=== PATIENT | female | born 1995 | race Caucasian/White ===

== ENCOUNTER 2021-10-01 16:06 | Outpatient (CLI) | payer OTHER | END 2021-10-01 18:16 | disposition home or self-care (01) | LOC: GENOP 16:06 | DX: O99.891 Other specified diseases and conditions complicating pregnancy (principal); N89.8 Other specified noninflammatory disorders of vagina; M54.50 Low back pain, unspecified; Z3A.29 29 weeks gestation of pregnancy | CPT/HCPCS: 76815; 83518 ==

== ENCOUNTER 2021-10-12 20:19 | Observation (INO) | payer OTHER ==
[~2021-10-12] VITALS: Ht 160 cm; Wt 79.4 kg
[2021-10-12 23:06] LABS: HEMOGLOBIN 11.1 gm/dl (12.3-15.3); RED BLOOD COUNT 3.46 M/UL (4.00-5.10); WHITE BLOOD COUNT 16.5 K/UL (4.5-11.0)
[2021-10-12 23:27] LABS: BUN/CREATININE RATIO 13 (0-10)
[2021-10-14 06:24] LABS: HEMOGLOBIN 9.7 gm/dl (12.3-15.3); RED BLOOD COUNT 3.02 M/UL (4.00-5.10); WHITE BLOOD COUNT 10.3 K/UL (4.5-11.0)
== END 2021-10-14 12:36 | disposition home or self-care (01) ==
LOC: GENOP 20:19 → OB 21:43 → 3 EAST 10-13 03:12 → OB 10-13 07:18
PROVIDERS: Obstetrics & Gynecology; ADMIT Obstetrics & Gynecology
DX: O23.03 Infections of kidney in pregnancy, third trimester (principal); O98.513 Other viral diseases complicating pregnancy, third trimester; U07.1 COVID-19; Z3A.31 31 weeks gestation of pregnancy
CPT/HCPCS: 80053; 81001; 85025; 87086; 96365; 96372; 96375; 96376; G0378; J0696; J2270; J7030; U0002